=== PATIENT | male | born 2000 | race Caucasian/White ===

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

== ENCOUNTER 2018-09-07 12:48 | Emergency (ER) | payer OTHER ==
[~2018-09-07] VITALS: Ht 180.3 cm; Wt 54.4 kg
[2018-09-07 13:10] VITALS: BP 112/58
[2018-09-07] MEDS: KETOROLAC 30 MG/ML VIAL IM ONE (14:11)
[2018-09-07 14:40] VITALS: BP 112/58
== END 2018-09-07 14:39 | disposition home or self-care (01) ==
LOC: MED 12:48
DX: S16.1XXA Strain of muscle, fascia and tendon at neck level, initial encounter (principal); S46.912A Strain of unspecified muscle, fascia and tendon at shoulder and upper arm level, left arm, initial encounter; S39.011A Strain of muscle, fascia and tendon of abdomen, initial encounter; S20.212A Contusion of left front wall of thorax, initial encounter; V43.52XA Car driver injured in collision with other type car in traffic accident, initial encounter; Y93.19 Activity, other involving water and watercraft; Y92.488 Other paved roadways as the place of occurrence of the external cause; Y99.8 Other external cause status
CPT/HCPCS: 96372; 99283; J1885

== ENCOUNTER 2018-11-23 20:57 | Emergency (ER) | payer OTHER ==
[~2018-11-23] VITALS: Ht 180.3 cm; Wt 56.7 kg
[2018-11-23 21:17] VITALS: BP 117/71
--- NOTE | 2018-11-23 21:22 | NUR ---
PT AMBULATED TO LOBBY WITH VSS.
--- NOTE | 2018-11-23 22:18 | NUR ---
NO ANSWER AT 2218; 2225; 2235. PATIENT LEFT WITHOUT BEING SEEN BY DR. DAVIS. NO FURTHER CARE PROVIDED FOR PATIENT.
== END 2018-11-23 22:18 | disposition left against medical advice (07) ==
LOC: MED 20:57
DX: R07.89 Other chest pain (principal); Z53.21 Procedure and treatment not carried out due to patient leaving prior to being seen by health care provider; V89.2XXA Person injured in unspecified motor-vehicle accident, traffic, initial encounter; Y93.89 Activity, other specified; Y92.89 Other specified places as the place of occurrence of the external cause; Y99.8 Other external cause status